=== PATIENT | female | born 1995 ===

== ENCOUNTER 2022-04-12 19:14 | Emergency (ER) | payer BC, SELFPAY ==
[2022-04-12] MEDS ORDERED: Tetracaine 0.5% PF 4 ML BOT ONE (19:55)
[2022-04-12] MEDS ORDERED: Fluorescein Opthalmic Strip ONE (19:55)
[2022-04-12] MEDS ORDERED: Erythromycin Base 0.5% Ophth Oint 3.5 gm Tube ONE (20:19)
[2022-04-12] MEDS ORDERED: Acyclovir 200 mg Capsule ONE (20:28)
== END 2022-04-12 20:33 | disposition home or self-care (01) ==
LOC: MADERS 19:14
DX: B00.52 Herpesviral keratitis (principal); F17.210 Nicotine dependence, cigarettes, uncomplicated
CPT/HCPCS: 99283

== ENCOUNTER 2023-06-23 17:43 | Emergency (ER) | payer SELFPAY ==
[2023-06-23] MEDS ORDERED: Silver Sulfadiazine 50 GM TUBE ONE (19:47)
[2023-06-23] MEDS ORDERED: Clindamycin 150 MG CAP ONE (19:47)
== END 2023-06-23 20:30 | disposition home or self-care (01) ==
LOC: MADERS 17:43
DX: T25.222A Burn of second degree of left foot, initial encounter (principal); T24.112A Burn of first degree of left thigh, initial encounter; L03.116 Cellulitis of left lower limb; F17.210 Nicotine dependence, cigarettes, uncomplicated; X10.2XXA Contact with fats and cooking oils, initial encounter
CPT/HCPCS: 16020; 87070; 87077; 87186; 87205